=== PATIENT | male | born 2000 | race Caucasian/White ===

== ENCOUNTER 2025-07-17 12:59 | Emergency (ER) | payer OTHER, SELFPAY ==
[2025-07-17 13:06] VITALS: BP 130/73; PULSE 90; RESP 16; TEMP 37; O2SAT 99
--- NOTE | 2025-07-17 13:09 | ED_ITS ---
HPI - General Adult General Chief complaint: Unspecified Stated complaint: needs cleared to work Time Seen by Provider: 07/17/25 13:09 Source: patient, RN notes reviewed and old records reviewed Mode of arrival: ambulatory Limitations: no limitations History of Present Illness HPI narrative: 24-year-old male presents to the [facility] requesting a work note. States that he called off work on Friday due to an upset stomach. Has no symptoms currently. Vitals are stable. No complaints at this time. Denies chest pain, abdominal pain. Denies fevers. Related Data Home Medications ?Medication ?Instructions ?Recorded ?Confirmed ?Last Taken ?Type No Home Medications 07/17/25 07/17/25 U nknown History Allergies Allergy/AdvReac Type Severity Reaction Status Date / Time No Known Allergies Allergy Verified 07/17/25 13:02 Review of Systems Review of Systems: All systems reviewed & are unremarkable except as noted in HPI and below Constitutional: Constitutional: Reports no additional constitutional complaints ENT: Reports system reviewed and no additional complaints, except as documented Cardiovascular: Cardiovascular: Reports no additional cardiovascular complaints, Denies chest pain and Denies dyspnea Respiratory: Respiratory: Reports no additional respiratory complaints, Denies chest congestion, Denies cough and Denies dyspnea Musculoskeletal: Musculoskeletal: Reports no additional musculoskeletal complaints Integumentary/Breasts: Skin/Breast: Reports system reviewed and no additional complaints, except as docu PMFSH Comments At the time of my signature, I reviewed and agree with the nursing past medical, surgical, social, and family history. There is no relevant family history pertinent to the patient complaint. Exam Const: General: cooperative, healthy appearing, comfortable, no acute distress, well developed, alert and well nourished Nutritional Appearance: well nourished Orientation/consciousness: patient oriented x3 Limitations: no limitations HENMT: Head: normal to inspection Eyes: General: appearance normal, both eyes and all related structures Alignment and Position: alignment normal Neck: Neck: normal visual inspection, full ROM, no lymphadenopathy and no meningeal signs Chest: Chest palpation & inspection: normal inspection of the chest Resp: Effort & Inspection: normal respiratory effort and able to speak in complete sentences Auscultation: clear to auscultation bilaterally, no crackles, no rales, no rhonchi and no wheezes Cardio: Rate: regular rate Skin: General skin exam: normal color and no rashes or lesions noted Neuro: General: patient oriented x3, gait normal, moves all extremities and no meningeal signs Cognition (Neuro): normal cognition Speech: normal speech Gait exam (Neuro): Normal gait present Extrem: General: normal to inspection, full ROM, capillary refill normal and normal gait Psych: Appearance: grossly normal and well kempt Mental Status: mental status grossly normal Speech and movement: Normal speech and movement present and Clear speech present Affect: normal affect Attitude: cooperative Course Course Level of Care: Express Care Visit Vital Signs Vital signs: Vital Signs Temperature 98.6 F 07/17/25 13:06 Pulse Rate 90 07/17/25 13:06 Respiratory Rate 16 07/17/25 13:06 Blood Pressure 130/73 07/17/25 13:06 Pulse Oximetry 99 07/17/25 13:06 Oxygen Delivery Room Air 07/17/25 13:06 Temperature 98.6 F 07/17/25 13:06 Pulse Rate 90 07/17/25 13:06 Respiratory Rate 16 07/17/25 13:06 Blood Pressure 130/73 07/17/25 13:06 Pulse Oximetry 99 07/17/25 13:06 Oxygen Delivery Room Air 07/17/25 13:06 Reviewed Medical Decision Making MDM Narrative Medical decision making narrative: Patient sitting in exam room. Patient is nontoxic, vitals stable. Patient in no acute distress. Patient presents requesting a work note that is required by his job. States that he was not feeling well on Friday with an upset stomach, denied any other symptoms. No cerumen thumbs currently. would like to return to work tomorrow. Work note for 1 day given Discharge instructions reviewed with patient, as well as provided in writing per nursing staff. The instructions also include specific and strict return/GO TO THE ER as well as f/u information. All questions have been answered, and the patient deny any further questions with discharge and discharge plan. Some parts of this dictation were generated by voice recognition software and may contain typographical and/or grammatical inaccuracies. Differential Diagnosis Differential Diagnosis: Work note, gastroenteritis, acid reflux Medical Records Medical records reviewed: Yes I reviewed the external patient's medical records. Vital Signs Vital Signs: Vital Signs Temperature 98.6 F 07/17/25 13:06 Pulse Rate 90 07/17/25 13:06 Respiratory Rate 16 07/17/25 13:06 Blood Pressure 130/73 07/17/25 13:06 Pulse Oximetry 99 07/17/25 13:06 Oxygen Delivery Room Air 07/17/25 13:06 Temperature 98.6 F 07/17/25 13:06 Pulse Rate 90 07/17/25 13:06 Respiratory Rate 16 07/17/25 13:06 Blood Pressure 130/73 07/17/25 13:06 Pulse Oximetry 99 07/17/25 13:06 Oxygen Delivery Room Air 07/17/25 13:06 Reviewed Lab Data Lab results reviewed: Yes I reviewed the patient's lab results. Labs: Reviewed Critical Care Time Critical Care Time Critical Care Time: No Discharge Plan Discharge Clinical Impression: Stomach upset Patient Disposition: Home Condition: Stable Instructions: Antibiotic Form, Acute Nausea and Vomiting (DC) Patient Language: Bel[place]ian Prescriptions: No Action No Home Medications Follow-up/Referrals: PHYSICIAN,FORMS ANALYSIS MANAGER [Primary Care Provider, Internal Medicine] Stand Alone Forms: Work/School Release IP Time of Disposition: 13:14
== END 2025-07-17 13:16 | disposition home or self-care (01) ==
PROVIDERS: Emergency Provider Nurse Practitioner
DX: K30 Functional dyspepsia (principal)
CPT/HCPCS: 99202; G0463